=== PATIENT | female | born 1965 | race Caucasian/White ===

== ENCOUNTER 2020-06-24 09:34 | Outpatient (REF) | payer OTHER, SELFPAY ==
--- NOTE | 2020-06-24 09:10 | PAPFT_PTH ---
PATIENT: Laura Boyd LOC: [facility] U#:[id number] AGE/SX: 55/F ROOM: RE06/24/[address]: Mercedes Connors : 1965 BED: DIS: 06/24/2020 SPEC #: [id number] RECD: 06/25/20 13:00 STATUS: TANNER KAUR #: [id number] RACHID: 06/24/20 09:[address]: Mercedes Connors DEPT: [facility] Cytology RECD BY: Clotilde Billingsley Tissues: 1 - CX/ENDOCX FOR PAP SMEARS Procedures: PAP THIN PREP/[facility] Screening HPV DNA PROBE Comments: [id number]
[2020-06-24 13:39] LABS: ALT 30 U/L (14-59); AST 16 U/L (15-37); Albumin 4.1 g/dL (3.4-5.0); Alkaline Phosphatase 100 U/L (46-116); Anion Gap 11.8 mmol/L (3-11); BUN 8 mg/dL (7-18); CO2 27.2 mmol/L (21.0-32.0); CREATININE 0.6 mg/dL (0.55-1.02); Calcium 9.6 mg/dL (8.5-10.1); Calculated LDL 124 mg/dL (<100); Chloride 106 mmol/L (98-107); Cholesterol 209 mg/dL (<200); Glucose 94 mg/dL (74-106); HDL Cholesterol 76 mg/dL (40-60); Potassium 4.3 mmol/L (3.5-5.1); Sodium 145 mmol/L (136-145); TSH (W/Ref FT4) 0.15 uIU/mL (0.36-3.74); Total Protein 7.2 g/dL (6.4-8.2); Triglyceride 48 mg/dL (<150)
[2020-06-24 13:57] LABS: Bilirubin, Total 0.2 mg/dL (0.2-1.0); FREE T4 1.14 ng/dL (0.76-1.46)
[2020-06-24 14:16] LABS: Hemoglobin A1C 5.7 % (<5.7)
== END 2020-06-24 09:35 | disposition home or self-care (01) ==
LOC: NCHCN 09:34
PROVIDERS: PCP Family Medicine; Visit Provider Family Medicine
DX: Z00.00 Encounter for general adult medical examination without abnormal findings (principal); E66.9 Obesity, unspecified; Z12.4 Encounter for screening for malignant neoplasm of cervix; Z11.51 Encounter for screening for human papillomavirus (HPV)
CPT/HCPCS: 80053; 80061; 88142; 83036; 84439; 84443; 87624

== ENCOUNTER 2023-11-18 15:54 | Outpatient (REF) | payer OTHER, SELFPAY ==
[2023-11-18 15:06] LABS: Anion Gap 8.8 mmol/L (3-11); BUN 10 mg/dL (7-18); CO2 27.2 mmol/L (21.0-32.0); CREATININE 0.7 mg/dL (0.55-1.02); Calcium 9.6 mg/dL (8.5-10.1); Chloride 103 mmol/L (98-107); Estimated GFR 98.95 (mL/min/1.73m2); Glucose 94 mg/dL (74-106); Potassium 3.9 mmol/L (3.5-5.1); Sodium 139 mmol/L (136-145); TSH (W/Ref FT4) 0.22 uIU/mL (0.36-3.74)
== END 2023-11-18 15:55 | disposition home or self-care (01) ==
LOC: NCHCN 15:54
PROVIDERS: PCP Family Medicine; Visit Provider Family Medicine
DX: Z00.00 Encounter for general adult medical examination without abnormal findings (principal)
CPT/HCPCS: 80048; 84439; 84443